=== PATIENT | male | born 1995 ===

== ENCOUNTER 2024-03-06 18:09 | Emergency (ER) | payer OTHER ==
--- NOTE | 2024-03-06 18:50 | ED ---
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 Patient states he was skateboarding when he fell backwards onto the concrete, striking the back of his head and losing consciousness for an unknown amount of time. Patient states he was in [place] at the time and was driven up to [place] before he could be evaluated. St ates the drive to [place] felt surreal and dreamlike to him. Endorses minor headache with more significant neck pain. Denies extremity radiculopathy, paresthesia or weakness. Denies vision changes, dizziness, nausea/vomiting. (Palbo Bronson) This is a 28-year-old male after a significant fall while skateboarding today hitting his head with positive loss of consciousness neck pain back pain, patient feels lightheaded dizzy, feels like he is in a daze (Marcus Olivarez) - Related Data Allergies Allergy/AdvReac Type Severity Reaction Status Date / Time No Known Allergies Allergy Verified 03/06/24 18:57 Review of Systems ROS Other: All systems not noted in ROS Statement are negative. <Pablo Bronson - Last Filed: 03/06/24 18:52> ROS Other: All systems not noted in ROS Statement are negative. <Marcus Olivarez - Last Filed: 03/12/24 18:24> ROS Statement: Those systems with pertinent positive or pertinent negative responses have been documented in the HPI. General Exam <Pablo Bronson - Last Filed: 03/06/24 18:52> General appearance: alert, in no apparent distress Head exam: Present: atraumatic, normocephalic, normal inspection Eye exam: Present: normal appearance, PERRL, EOMI. Absent: scleral icterus, conjunctival injection, periorbital swelling ENT exam: Present: normal exam, mucous membranes moist Neck exam: Present: normal inspection. Absent: tenderness, meningismus, lymphadenopathy Respiratory exam: Present: normal lung sounds bilaterally. Absent: respiratory distress, wheezes, rales, rhonchi, stridor Cardiovascular Exam: Present: regular rate, normal rhythm, normal heart sounds. Absent: systolic murmur, diastolic murmur, rubs, gallop, clicks GI/Abdominal exam: Present: soft, normal bowel sounds. Absent: distended, tenderness, guarding, rebound, rigid Extremities exam: Present: normal inspection, full ROM, normal capillary refill. Absent: tenderness, pedal edema, joint swelling, calf tenderness Back exam: Present: normal inspection Neurological exam: Present: alert, oriented X3, CN II-XII intact Psychiatric exam: Present: normal affect, normal mood Skin exam: Present: warm, dry, intact, normal color. Absent: rash <Marcus Olivarez - Last Filed: 03/12/24 18:24> - General Exam Comments Initial Comments: Visual Physical Exam Vital signs reviewed General: Well-appearing, nontoxic, no acute distress. Head: Normocephalic, atraumatic Eyes: PERRLA, EOMI ENT: Airway patent Chest: Nonlabored breathing Skin: No visual rash, normal skin tone Neuro: Alert and oriented 3 Musculoskeletal: No gross abnormalities (Pablo Bronson) Course <Marcus Olivarez - Last Filed: 03/12/24 18:24> Vital Signs 03/06/24 18:52 Temperature 99.5 F Pulse Rate 80 Respiratory 18 Rate Blood Pressure 118/73 O2 Sat by Pulse 99 Oximetry - Reevaluation(s) Reevaluation #1: Medical records reviewed (Marcus Olivarez) Reevaluation #2: Patient symptoms relatively unchanged (Marcus Olivarez) Reevaluation #3: Patient informed of results questions answered (Marcus Olivarez) Reevaluation #4: Was pt. sent in by a medical professional or institution (WHITNEY Bruce, INDUSTRIAL ENGINEERING MANAGER, urgent care, hospital, or alf...) When possible be specific @ -no Did you speak to anyone other than the patient for history (EMS, parent, family, police, friend...)? What history was obtained from this source @ -no Did you review nursing and triage notes (agree or disagree)? Why? @ -agree Are old charts reviewed (outside hosp., previous admission, EMS record, old EKG, old radiological studies, urgent care reports/EKG's, alf records)? Report findings @ -yes Differential Diagnosis (chest pain, altered mental status, abdominal pain women, abdominal pain men, vaginal bleeding, weakness, fever, dyspnea, syncope, headache, dizziness, GI bleed, back pain, seizure, CVA, palpatations, mental health, musculoskeletal)? @ -prior EKG interpreted by me (3pts min.). @ -no X-rays interpreted by me (1pt min.). @ -no CT interpreted by me (1pt min.). @ -yes negative for acute disease U/S interpreted by me (1pt. min.). @ -no What testing was considered but not performed or refused? (CT, X-rays, U/S, labs)? Why? @ -none What meds were considered but not given or refused? Why? @ -none Did you discuss the management of the patient with other professionals (professionals i.e. WHITNEY Bruce, INDUSTRIAL ENGINEERING MANAGER, lab, RT, psych nurse, transition social worker, caser in, teacher, professional security officer, child support case officer)? Give summary @ -no Was smoking cessation discussed for >3mins.? @ -no Was critical care preformed (if so, how long)? @ -no Were there social determinants of health that impacted care today? How? (Homelessness, low income, unemployed, alcoholism, drug addiction, trans portation, low edu. Level, literacy, decrease access to med. care, group home, rehab)? @ -none Was there de-escalation of care discussed even if they declined (Discuss DNR or withdrawal of care, Hospice)? DNR status @ -no What co-morbidities impacted this encounter? (DM, HTN, Smoking, COPD, CAD, Cancer, CVA, ARF, Chemo, Hep., AIDS, mental health diagnosis, sleep apnea, morbid obesity)? @ -none Was patient admitted / discharged? Hospital course, mention meds given and route, prescriptions, significant lab abnormalities, going to OR and other pertinent info. @ - 28 male with head injury after fall with loss of consciousness. CT brain C-spine negative for acute disease patient can be discharged home Discharge Undiagnosed new problem with uncertain prognosis? @ -no Drug Therapy requiring intensive monitoring for toxicity (Heparin, Nitro, Insulin, Cardizem)? @ -no Were any procedures done? @ -no Diagnosis/symptom? @ -Head injury Acute, or Chronic, or Acute on Chronic? @ -Acute Uncomplicated (without systemic symptoms) or Complicated (systemic symptoms)? @ -Complicated Side effects of treatment? @ -no Exacerbation, Progression, or Severe Exacerbation? @ -exacerbation Poses a threat to life or bodily function? How? (Chest pain, USA, [place], pneumonia, PE, COPD, DKA, ARF, appy, cholecystitis, CVA, Diverticulitis, Homicidal, Suicidal, threat to staff... and all critical care pts) @ -no (Marcus Olivarez) Reevaluation #5: Differential Headache: Migraine, tension, cluster, carbon monoxide, central venous thrombosis, pension karma temporal arteritis, acute closure glaucoma, intercranial hemorrhage, mastoiditis, sinusitis, head injury, this is not meant to be an all-inclusive list. (Marcus Olivarez) Medical Decision Making <Pablo Bronson - Last Filed: 03/06/24 18:52> - Radiology Data Radiology results: report reviewed (CT brain C-spine negative for acute disease), image reviewed <Marcus Olivarez - Last Filed: 03/12/24 18:24> - Medical Decision Making I completed the quick note portion of this chart signed PADMINI Mitchell (Pablo Bronson) 28 male with head injury after fall with loss of consciousness. CT brain C- spine negative for acute disease patient can be discharged home (Marcus Olivarez) Disposition <Pablo Bronson - Last Filed: 03/06/24 18:52> Is patient prescribed a controlled substance at d/c from ED?: No Time of Disposition: 19:50 <Marcus Olivarez - Last Filed: 03/12/24 18:24> Clinical Impression: Closed head injury, Fall, Concussion with loss of consciousness Disposition: HOME SELF-CARE Condition: Good Instructions (If sedation given, give patient instructions): Concussion (ED), Head Injury (ED) Referrals: None,Stated [Primary Care Provider] - 1-2 days
[2024-03-06 18:57] VITALS: BP 118/73; PULSE 80; RESP 18; TEMP 99.5
--- NOTE | 2024-03-06 19:42 | CT ---
EXAMINATION TYPE: CT brain cspine wo con DATE OF EXAM: 03/06/2024 7:23 PM COMPARISON: None. CLINICAL INDICATION: Male, 28 years old with history of Fall backwards onto concrete with loss of con sciou; Fell backwards, hit back of head on concrete, positive LOC., pain TECHNIQUE: Brain: Multiple axial CT images of the brain were obtained without IV contrast. Cspine: Axial CT images from the skull base to the inferior aspect of T2 we obtained without intraven ous contrast. Coronal and sagittal reformatted images were also reviewed. . CT DLP: 1367.8 mGycm, Automated exposure control for dose reduction was used. FINDINGS: Brain: Extra-axial spaces: No abnormal extra-axial fluid collections. Ventricular system: Within normal limits Cerebral parenchyma: No acute intraparenchymal hemorrhage or mass effect. The galindo-white junction is well differentiated. Cerebellum: Unremarkable. Mass effect: No evidence of midline shift. Intracranial vasculature: unremarkable Soft tissues: Normal. Calvarium/osseous structures: No depressed skull fracture. Paranasal sinuses and mastoid air cells: Layering secretions within the right maxillary sinus. Visualized orbits: Orbital contents are intact. Cervical spine: Fracture: None. Osseous structures: Unremarkable Vertebral alignment: Within normal limits. Spinal canal/Neural Foramina: No evidence of significant spinal canal narrowing. No evidence for sign ificant neural foraminal stenosis. Neck soft tissues: Prevertebral soft tissues are within normal limits. Other: The airway is patent. The lung apices are clear. IMPRESSION: 1. No acute intracranial process. 2. No evidence of cervical spine fracture. [facility], , 03/06/2024 7:39 PM
== END 2024-03-06 21:09 | disposition home or self-care (01) ==
LOC: EC 18:09
DX: S06.0X9A Concussion with loss of consciousness of unspecified duration, initial encounter (principal); W22.09XA Striking against other stationary object, initial encounter; Y93.51 Activity, roller skating (inline) and skateboarding
CPT/HCPCS: 70450; 72125; 99283